=== PATIENT | female | born 1980 | race Caucasian/White ===

== ENCOUNTER 2016-07-25 09:56 | Inpatient (IN) | payer SELFPAY ==
[~2016-07-25] VITALS: Ht 172.7 cm; Wt 176.1 kg
[~2016-07-25 09:56] MED LIST: ATARAX10 MG PO; BUSPAR5 MG PO; ERGOCALCIF50000 UNIT PO; WELLBUTRIN XL150 MG PO
[2016-07-25] MEDS ORDERED: ATARAX,VISTARIL25 MG PO (10:33)
[2016-07-25] MEDS ORDERED: SILVASORB1.5 OZ TP (10:34)
[2016-07-25] MEDS ORDERED: FLUOXETINE HCL20 MG PO (10:35)
[2016-07-25 10:53] LABS: CHLORIDE 109 mEq/L (99-109); POTASSIUM 4.2 mEq/L (3.7-5.4); SODIUM 142 mEq/L (136-147)
[2016-07-25 10:55] LABS: GLUCOSE 104 mg/dL (70-99)
[2016-07-25 10:56] LABS: ANION GAP 9 MEQ/L (2-14)
[2016-07-25 10:58] LABS: GFR ESTIMATE (CALCULATED) > 59 mL/min/; SERUM ETHYL ALCOHOL < 10 mg/dL
[2016-07-25 10:59] LABS: UREA NITROGEN (BUN) 13 mg/dL (9-23)
[2016-07-25 11:07] LABS: QUANTITATIVE HCG < 4.0 MIU/ML
[2016-07-25 11:08] LABS: EOSINOPHIL (%) 3.4 % (0-5); EOSINOPHIL COUNT 0.3 K/uL (0-0.3); IMMATURE GRANULOCYTE (%) 0.3 % (0.0-0.7); INSTRUMENT ABS NEUTROPHIL CT 5.4 K/uL; LYMPHOCYTE COUNT 2.5 K/uL (1.0-2.8); MCH 27.3 PG (29.0-34.0); MCHC 31.5 G/DL (30.0-36.0); MCV 86.6 FL (83-99); MEAN PLAT.VOLUME 9.6 uM^3 (9.5-12.4); MONOCYTE (%) 6.6 % (3-12); MONOCYTE COUNT 0.6 K/uL (0-0.8); NEUTROPHIL (%) 60.7 % (45-76); NEUTROPHIL COUNT 5.4 K/uL (1.8-6.4); PLATELET COUNT 237 K/uL (156-360); RBC DIS.WIDTH-CV 13.7 % (11.8-14.6); RBC DIS.WIDTH-SD 42.8 % (39-53); RED BLOOD COUNT 4.62 M/uL (3.80-5.20); WHITE BLOOD COUNT 8.9 K/uL (4.1-10.2)
[2016-07-25] MEDS ORDERED: BENADRYL25 MG PO (11:34)
[2016-07-25 14:16] VITALS: BP 132/84
[2016-07-26 07:29] VITALS: BP 111/79
[2016-07-26 16:04] VITALS: BP 130/76
[2016-07-27 07:43] VITALS: BP 120/52
[2016-07-27 16:02] VITALS: BP 110/54
[2016-07-28 07:57] VITALS: BP 123/52
[2016-07-28 14:57] VITALS: BP 121/69
[2016-07-29] MEDS ORDERED: HYDROCORTISON28.4 GM TP (09:37)
[2016-07-29] MEDS ORDERED: BUPROPION XL300 MG PO (09:37)
[2016-07-29] MEDS ORDERED: ZOLOFT100 MG PO (09:37)
[2016-07-29 10:07] VITALS: BP 110/61
== END 2016-07-29 11:02 | disposition home or self-care (01) | DRG 885 ==
LOC: EME 09:56 → EDOF 12:47 → 1WEST 12:47 → EDOF 12:47 → 1WEST 14:11
PROVIDERS: Emergency Medicine
DX: F33.2 Major depressive disorder, recurrent severe without psychotic features (principal); R45.851 Suicidal ideations; F41.8 Other specified anxiety disorders
CPT/HCPCS: 80048; 81003; 84702; 85025; 87070; 87075; 87205; 90839; 97150 GO; 97165 GO; 99281; 99285; G0480